=== PATIENT | male | born 1955 | race Caucasian/White ===

== ENCOUNTER 2017-01-01 11:42 | Day surgery (SDC) | payer BC ==
[~2017-01-01 11:42] MED LIST: RINGERS SOLUTION,LACTATED 1,000 ML IV PRN
[2017-01-01] MEDS ORDERED: BUPIVACAINE HCL/EPINEPHRINE 50 ML VIAL IJ ONE ×2 (13:50)
[2017-01-01] MEDS ORDERED: oxyCODONE HCL/ACETAMINOPHEN 1 TAB TABLET PO PRN (14:56)
[2017-01-01 15:37] VITALS: BP 122/62
--- NOTE | 2017-01-02 19:01 | OR ---
Operative Report - Dictated Report Narrative: OPERATIVE REPORT DATE OF OPERATION: 01/01/2017 PREOPERATIVE DIAGNOSIS: No prior dedicated colon studies. Pilar Cyst POSTOPERATIVE DIAGNOSIS: Sigmoid diverticulosis. Pilar Cyst of posterior scalp (pathology pending) OPERATION: Colonoscopy and excision of pilar cyst of the scalp SURGEON: Rosalba Phelps MD ANESTHESIA: MAC/local Tadeo Martínez CRNA INDICATIONS FOR PROCEDURE: The patient is a 61-year-old male referred for initial colon screening by Dr. Lantigua. The patient's mother had colon cancer at age 84. The patient has had no previous dedicated colon studies. He is currently asymptomatic. He has no enlarging pilar cyst on the posterior scalp which is frequently traumatized. FINDINGS: Sigmoid diverticulosis otherwise normal colonoscopy to the cecum. Large pilar cyst of the posterior scalp (pathology pending) NARRATIVE OF PROCEDURE: The patient was identified in the holding area, the cyst scalp was identified, and prior to the administration of anesthetic, a multidisciplinary timeout was observed. EXCISION OF SCALP CYST: With the patient in the right lateral position and after the administration of intravenous sedation the area around the pilar cyst was clipped of hair, prepped with Betadine solution, and isolated with sterile drapes. The remainder the patient was cover with sterile disposable drapes. The area around the cyst was infiltrated with 0.5% Marcaine with epinephrine. An incision was made in the skin over the cyst which could then be dissected free from the surrounding scalp using Metzenbaum scissors. The cyst was removed intact and submitted to pathology. The wound was inspected for hemostasis which appeared complete. All counts were correct. The wound was approximated with beena. The area was washed and dried. No dressing was applied. COLONOSCOPY: The patient was placed in the left lateral position and the perineum was inspected. There was no evidence of pilonidal disease or skin breakdown. The external appearance of the anus was normal. Sphincter tone was good. The flexible fiberoptic colonoscope was inserted into the rectum which was insufflated with air. The rectal mucosa and submucosal vascular pattern appeared normal, the prep was seen to be complete. The scope was advanced through the sigmoid colon, which contained numerous large not impacted noninflamed diverticular openings. The scope was advanced up the descending colon, and around the splenic flexure where the triangular haustral architecture of the transverse colon was seen. The scope was advanced across the transverse colon, around the hepatic flexure to the cecum, where the confluence of tenia and the ileocecal valve were identified. The mucosa at this level appeared normal. The scope was then slowly withdrawn in a circular fashion so that all aspects of colonic mucosa were inspected. The colon was normal in course and caliber. The haustral architecture appeared well preserved throughout with no evidence of external compression. The mucosa and submucosal vascular pattern appeared normal, specifically there was no gross evidence to suggest colitis or inflammatory bowel disease and no AV malformations were seen. The diverticulosis was moderate in degree and confined primarily to the sigmoid colon. No polyps were encountered. The scope was gradually withdrawn to the level of the rectum. As much insufflated air as possible was removed. The scope was withdrawn from the patient and the procedure terminated. The patient tolerated the anesthetic and procedure well without complication and was transferred back to the ambulatory surgery area awake and in stable condition. The patient remained stable throughout a period of postoperative observation. He denied abdominal discomfort or pain in the scalp, was able to tolerate by mouth intake, and was up without assistance. I shared the operative findings with the patient and he was given copies of the photographs which appear in the medical record. He was discharged home with instructions not to engage in hazardous activity today, but may resume normal activity tomorrow, and advance diet as tolerated. He is to keep the scalp incision dry for at least 48 hours. He is to continue those medications as listed in the history and physical exam. He has phone numbers to call for problems with the scalp incision. A return office appointment was made for 01/09/2017. RECOMMENDATION: Colon surveillance in 10 years depending upon findings or symptoms A trial of Benefiber or equivalent was suggested in addition to a high fiber to aid with diverticulosis. Reviewed and electronically signed
== END 2017-01-01 11:43 | disposition home or self-care (01) ==
LOC: AMB 11:42
PROVIDERS: ATTEND Surgery
PROC: 0DJD8ZZ Inspection of Lower Intestinal Tract, Via Natural or Artificial Opening Endoscopic (ICD-10-PCS; principal; 2017-01-01 13:45)
PROC: 0HB0XZZ Excision of Scalp Skin, External Approach (ICD-10-PCS; 2017-01-01 13:45)
DX: Z12.11 Encounter for screening for malignant neoplasm of colon (principal); L72.11 Pilar cyst; K57.30 Diverticulosis of large intestine without perforation or abscess without bleeding; Z87.891 Personal history of nicotine dependence; Z80.0 Family history of malignant neoplasm of digestive organs; Z68.28 Body mass index [BMI] 28.0-28.9, adult
CPT/HCPCS: 11426; G0105

== ENCOUNTER 2018-07-24 16:08 | Observation (INO) ==
[2018-07-24 16:37] LABS: Hematocrit 43.8 % (42.0-52.0); Hemoglobin 15.2 gm/dL (13.5-18.0); Mean Cell Volume 88.5 fl (78-100); Mean Corpuscular Hemoglobin 30.7 pg (27-31); Mean Corpuscular Hgb Conc 34.7 g/dl (32-36); Mean Platelet Volume 9.2 fl (8-11.3); Neutrophil # 5.4 K/mm3 (1.3-6.0); Neutrophil % 69.5 % (42-75.0); Platelet Count 215 K/mm3 (150-450); Red Blood Count 4.95 M/mm3 (4.7-6.0); Red Cell Distribution Width 13.1 % (11.5-14.0); White Blood Count 7.8 K/mm3 (4.0-10.5)
[2018-07-24 16:54] LABS: Albumin * 4.5 gm/dl (3.4-5.0); Anion Gap 11.7 mmol/L (6.8-13.8); BUN/Creatinine Ratio 14.3 (9.0-21.6); Bilirubin, Total 0.5 mg/dL (0.0-1.1); Ca. Corrected For Albumin 8.5 mg/dL (8.4-10.2); Calcium * 9.2 mg/dL (7.9-10.9); Potassium 3.7 mmol/L (3.4-4.6); Total Protein 7.8 gm/dL (6.2-8.2); Troponin I 0.025 ng/mL (0.00-0.10)
--- NOTE | 2018-07-24 17:29 | ERNOTE ---
Chest Pain/Cardiac HPI Date of Service: 07/24/18 Chief Complaint: Chest Pain Time Seen by Provider: 07/24/18 16:24 Source: patient, family Exam Limitations: no limitations Immunizations: IMMUNIZATION HX Immunizations Up to Date Yes History of Influenza Vaccine No Hx Pneumococcal Vaccination No Allergies/Adverse Reactions: Allergies No Known Allergies Allergy (Verified 07/24/18 16:13) Home Medications: HOME MEDICATIONS NK [No Home Medication] 12/22/16 [Last Taken Unknown] Narrative: patient present to ed with report of chest pain this am with radiation to left arm suymptoms resolved aand returned briefly this afternoon , reports pain was mild rating it at 1-2 now reslved Timing: resolved prior to arrival Severity/Quality: moderate, pressure Location: substernal, left chest Chest Pain Radiation: arms Activities at Onset: activity Modifying Factors - Improves: Present: movement Modifying Factors - Worsens: Present: nothing Aspirin Treatment Today: 325 mg x 1 Associated Symptoms: Present: denies symptoms Prior Chest Pain/Cardiac Workup: Reports: no prior cardiac workup Review of Systems - Narrative Narrative: unremarkable - Review of Systems Constitutional: Present: See HPI EYE: Present: no symptoms reported ENT: Present: no symptoms reported Respiratory: Present: no symptoms reported Cardiology: Present: See HPI, chest pain Gastrointestinal/Abdominal: Present: no symptoms reported Genitourinary: Present: no symptoms reported Musculoskeletal: Present: no symptoms reported Skin: Present: no symptoms reported Neurological: Present: no symptoms reported Endocrine: Present: no symptoms reported Hematologic/Lymphatic: Present: no symptoms reported Psych: Present: no symptoms reported All Other Systems: All systems neg except as marked Medical History (Last Reviewed 07/24/18 @ 16:14 by Wanda De Guzman RN) Allergic rhinitis Onset Date: ~04/18/13 Dupuytren's contracture Onset Date: ~04/18/13 Mitral valve prolapse Onset Date: ~12/21/16 Murmur, cardiac Onset Date: Unknown Papilloma of oropharynx Onset Date: Unknown Sebaceous cyst Onset Date: ~04/18/13 Surgical History: Surgical History (Last Reviewed 07/24/18 @ 16:14 by Wanda De Guzman RN) H/O colonoscopy Onset Date: ~01/01/17 H/O removal of cyst Onset Date: ~01/01/17 H/O toe surgery Onset Date: Unknown History of ankle surgery Onset Date: Unknown [place] teeth extracted Onset Date: Unknown Family History: Family History (Last Reviewed 07/24/18 @ 16:14 by Wanda De Guzman RN) Brother Alive and well Brother Back problem Sister Alive and well Father AAA (abdominal aortic aneurysm) Mother Cancer Sister Cancer Social History: Preferred Language Vincentian Do you have any restorationist or No cultural preference? Smoking Status Former smoker Abuse History No History of abuse Psych History No pertinent hx Alcohol Use rarely Drug Use none Physical Exam - Physical Exam General Appearance: Present: no apparent distress Head Exam: Present: normal inspection, no evidence of injury Eye Exam: Normal inspection: bilateral, PERRL: bilateral, EOMI: bilateral Ears, Nose, Throat: Present: normal ENT inspection, normal pharynx Neck: Present: normal inspection, nontender Respiratory: Present: no respiratory distress, normal breath sounds, no accessory muscle use, chest nontender, lungs clear Cardiovascular/Chest: Present: regular rate, rhythm, no murmur, normal peripheral pulses Gastrointestinal/Abdominal: Present: normal bowel sounds, nontender, nondistended, soft, no organomegaly Back Exam: Present: normal inspection, normal range of motion, no CVA tenderness , no vertebral tenderness Extremity Exam: Present: normal inspection, non-tender, normal range of motion, no edema Neurological Exam: Present: alert, oriented, normal mood/affect, no motor/ sensory deficits Skin Exam: Present: normal color, warm/dry Lymphatic Exam: Present: no adenopathy ED Progress - Date and Time Seen: Date and Time: 07/24/18 19:54 patient improved no chest pain at present reviewed labs and xrays with patient , recomend observation to r/o cardiac ischemia, case discussed with dr silva who accepts patient for observation - Results and Orders Patient's Lab Results:: I have reviewed the patient's lab results. - Vital Signs Patient's Vital Signs:: I have reviewed the patient's vital signs. Vital Signs: Vital Signs 07/24/18 16:10 07/24/18 16:36 07/24/18 16:58 Temperature 36.7 C Pulse Rate 82 63 63 Respiratory Rate 15 9 L 16 Blood Pressure 148/108 H 182/127 H 159/59 H O2 Sat by Pulse Oximetry 99 97 98 - EKG EKG: NSR - X-Ray X-Ray #1 X-Ray: chest Interpretation: Interp. by me - no acute process - Progress/Reassessment Chief Complaint: Chest Pain Progress:: Improved - Transfer of Care Expected Disposition: Admit Plan - Plan Plan: to admit to observation Departure Clinical Impression: Chest pain in adult - Departure Disposition: Still a patient Condition: Fair Referrals: Aakash Lantigua MD [Primary Care Provider] -
[2018-07-24] MEDS ORDERED: NORMAL SALINE 1,000 ML IV PRN (20:14)
[2018-07-24] MEDS ORDERED: NITROGLYCERIN 0.4 MG/TAB BTL SL PRN (21:11)
--- NOTE | 2018-07-24 21:41 | HP ---
Chief Complaint - Chief Complaint Date of Service: 07/24/18 Time of Service: 21:30 Chief Complaint: acute coronary syndrome History of Present Illness: Juventino Galicia is a 63-year-old male presented to ER after having 2 episodes of left arm discomfort followed by some chest tightness and pressure. He's never had any of this before. He remains active and in good health. The second episode happened while at rest but then he got up and moved around and went up and down his back a few times and and then it seemed to resolve. His risk factors for coronary artery disease or nail in that he does not use tobacco , has no history of hypertension, no history of hyperlipidemia, no history of diabetes, and no primary family member history with coronary disease. 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 That he is in good health otherwise. He denies any shortness of breath, diaphoresis, radiation of the discomfort except the discomfort he had the left arm. Denies nausea, vomiting, lightheadedness, and his energy level has been normal recently. He is admitted for ACS, rule out CT. Initial EKGs are normal and cardiac enzymes and troponin are normal. He will have serial enzymes and EKGs. I'll talk with Dr. Lantigua here in the morning about doing a stress test. Medical History (Last Reviewed 07/24/18 @ 21:06 by Ashly Rodriguez) Allergic rhinitis Onset Date: ~04/18/13 Dupuytren's contracture Onset Date: ~04/18/13 Mitral valve prolapse Onset Date: ~12/21/16 Murmur, cardiac Onset Date: Unknown Papilloma of oropharynx Onset Date: Unknown Sebaceous cyst Onset Date: ~04/18/13 Surgical History: Surgical History (Last Reviewed 07/24/18 @ 21:07 by Ashly Rodriguez) H/O colonoscopy Onset Date: ~01/01/17 H/O removal of cyst Onset Date: ~01/01/17 H/O toe surgery Onset Date: Unknown History of ankle surgery Onset Date: Unknown [place] teeth extracted Onset Date: Unknown Family History: Family History (Last Reviewed 07/24/18 @ 21:07 by Ashly Rodriguez) Brother Alive and well Brother Back problem Sister Alive and well Father AAA (abdominal aortic aneurysm) Mother Cancer Sister Cancer Social History: Patient Lives/Resources With Spouse 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 Smoking Status Former smoker Have you smoked in the past 12 No months Do you dip or chew tobacco No Abuse History No History of abuse Psych History No pertinent hx Alcohol Use rarely Drug Use none Review Of Systems (GEN) - Review of Systems EENTM: Present: No Symptoms Reported Respiratory: Present: No Symptoms Reported Cardiac: Present: Chest Pain Abdominal: Present: No Symptoms Reported Genitourinary: Present: No Symptoms Reported Musculoskeletal: Present: No Symptoms Reported Neurological: Present: No Symptoms Reported Skin: Present: No Symptoms Reported Endocrine: Present: No Symptoms Reported Misc: All systems neg except as marked Immunizations: IMMUNIZATION HX Immunizations Up to Date Yes History of Influenza Vaccine No Hx Pneumococcal Vaccination No Allergies/Adverse Reactions: Allergies Allergy/AdvReac Type Severity Reaction Status Date / Time No Known Allergies Allergy Verified 07/24/18 21:08 Home Medications: HOME MEDICATIONS NK [No Home Medication] 12/22/16 [Last Taken Unknown] Exam - Exam Vital Signs: Vital Signs - Last Taken Temp 36.7 C 07/24/18 16:10 Pulse 80 07/24/18 20:20 Resp 11 L 07/24/18 20:20 BP 159/59 H 07/24/18 16:58 Pulse Ox 99 07/24/18 20:20 Constitutional: Present: Alert, Oriented x3, Cooperative, Well developed, Well nourished, No distress ENT Exam: Present: normal ENT inspection, hearing grossly normal, pharynx normal , TMs normal Eye Exam: bilateral eye: normal inspection, PERRL, EOMI Neck: Present: non-tender, full range of motion, supple, normal inspection, trachea midline Back Exam: Present: normal inspection, no CVA tenderness, no vertebral tenderness Breasts: Present: Exam deferred Respiratory: Present: chest non-tender, lungs clear, normal breath sounds, no respiratory distress, no accessory muscle use Cardiovascular/Chest: Present: normal peripheral pulses, regular rate, rhythm, no chest tenderness, no edema, no gallop, no JVD, no murmur, no rub Peripheral Pulses: carotid (R): 2+, carotid (L): 2+, radial (R): 2+, radial (L) : 2+ Abdomen: Present: Normal bowel sounds, soft, nontender, nondistended, no rebound tenderness, no hepatospenomegaly, no masses /Rectal: Present: Exam deferred Extremity: Present: normal range of motion, non-tender, normal inspection, no pedal edema, no calf tenderness Skin Exam: Present: normal color, warm/dry, no cyanosis Lymphatic: Present: no adenopathy Neurologic: Present: eye technician II-XII nml as tested, normal cerebellar test, no motor/ sensory deficits, alert, normal mood/affect, oriented x 3 Appearance: Present: appropriate appearance, appropriate insight, neat Eye contact: Present: cooperative, good eye contact, normal speech Thoughts: Present: normal thought pattern, no apparent hallucination Diagnostic Studies: Laboratory Results WBC 7.8 K/mm3 (4.0-10.5) 07/24/18 16:20 RBC 4.95 M/mm3 (4.7-6.0) 07/24/18 16:20 Hgb 15.2 gm/dL (13.5-18.0) 07/24/18 16:20 Hct 43.8 % (42.0-52.0) 07/24/18 16:20 MCV 88.5 fl (78-100) 07/24/18 16:20 MCH 30.7 pg (27-31) 07/24/18 16:20 MCHC 34.7 g/dl (32-36) 07/24/18 16:20 RDW 13.1 % (11.5-14.0) 07/24/18 16:20 Plt Count 215 K/mm3 (150-450) 07/24/18 16:20 MPV 9.2 fl (8-11.3) 07/24/18 16:20 Immature Gran % (Auto) 0.30 % (0.001-0.429) 07/24/18 16:20 Immature Gran # (Auto) 0.02 K/mm3 (0.000-0.0310) 07/24/18 16:20 Neutrophils % 69.5 % (42-75.0) 07/24/18 16:20 Lymphocytes % 22.1 % (20-51) 07/24/18 16:20 Monocytes % 7.1 % (0.0-9) 07/24/18 16:20 Eosinophils % 0.6 % (0.0-3.0) 07/24/18 16:20 Basophils % 0.4 % (0.0-1.0) 07/24/18 16:20 Nucleated RBC % 0.0 k/mm3 (0-1) 07/24/18 16:20 Neutrophils # 5.4 K/mm3 (1.3-6.0) 07/24/18 16:20 Lymphocytes # 1.71 k/mm3 (1.5-3.5) 07/24/18 16:20 Monocytes # 0.6 k/mm3 (0.0-1.0) 07/24/18 16:20 Eosinophils # 0.1 k/mm3 (0.0-0.7) 07/24/18 16:20 Absolute Basophils 0.0 k/mm3 (0.0-0.1) 07/24/18 16:20 Sodium 139 mmol/L (132-142) 07/24/18 16:20 Plasma Sodium 139 mmol/L (130-142) 07/24/18 16:20 Potassium 3.7 mmol/L (3.4-4.6) 07/24/18 16:20 Chloride 103 mmol/L (97-106) 07/24/18 16:20 Carbon Dioxide 28.0 mmol/L (24-32.6) 07/24/18 16:20 Anion Gap 11.7 mmol/L (6.8-13.8) 07/24/18 16:20 BUN 13 mg/dL (6-23) 07/24/18 16:20 Creatinine 0.91 mg/dL (0.4-1.4) 07/24/18 16:20 Est GFR (Non-Af Amer) 90 mL/min (60-130) 07/24/18 16:20 BUN/Creatinine Ratio 14.3 (9.0-21.6) 07/24/18 16:20 Random Glucose 98 mg/dL (70-110) 07/24/18 16:20 Calcium 9.2 mg/dL (7.9-10.9) 07/24/18 16:20 Calcium Adj for Albumin 8.5 mg/dL (8.4-10.2) 07/24/18 16:20 Total Bilirubin 0.5 mg/dL (0.0-1.1) 07/24/18 16:20 AST 22 U/L (0-48) 07/24/18 16:20 ALT 30 U/L (19-67) 07/24/18 16:20 Alkaline Phosphatase 60 U/L (50-170) 07/24/18 16:20 Troponin I 0.058 ng/mL (0.00-0.10) 07/24/18 19:00 Total Protein 7.8 gm/dL (6.2-8.2) 07/24/18 16:20 Albumin 4.5 gm/dl (3.4-5.0) 07/24/18 16:20 Assessment/Plan - Narrative Narrative: He will have serial EKGs and troponin through the night. He may have a heart healthy diet to be up ad darian. He takes no medications to continue. He has taken aspirin first at home within an ER this evening. I'll turn his care doctor and appeared tomorrow if he is here. - Assessment/Plan (1) Acute coronary syndrome Problem: Acute (2) Chest pain in adult Problem: Acute
[2018-07-24] MEDS: METOPROLOL TARTRATE 25 MG TABLET PO SCH (21:52)
[2018-07-25] MEDS ORDERED: ACETAMINOPHEN 325 MG TABLET PO PRN (05:03)
[2018-07-25] MEDS ORDERED: NITROGLYCERIN 1 INCH PACKET TD SCH (07:00)
--- NOTE | 2018-07-25 07:04 | PN ---
Progess Note - Interim Date: 07/25/18 Time: 07:01 Narrative: 07/25/18 07:01 Pt. stating did have some mild chest pressure throughout the night, but not like the pain he had yesterday. No more left arm discomfort. No N/V. Trop I have trended up overnight without any EKG changes. No meds other than metoprolol given last pm. 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 A/P: ACS: will contact [facility] cardiology about possible transfer for cath and possible stent placement. Will keep pt. NPO for now. Will do nitropaste to chest given sx and elevated BP.
--- NOTE | 2018-07-25 07:36 | DS ---
Transfer Discharge Summary - Diagnosis(s)/Problems (1) Acute coronary syndrome Narrative: see narrative below. Problem: Acute (2) Chest pain in adult Problem: Acute - Course Description of Stay: Pt. admitted last pm for CP r/o AMI. He had continued chest pressure that was less than the CP yesterday AM, no no assoc. sx and no EKG's overnight. 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 This am due to BP's in the 140's/90's and continue chest discomfort I did place 1inch nitrobid on his chest wall as his Trop I went from Laboratory Tests 07/24/18 07/25/18 16:20 03:13 Troponin I 0.025 0.129 H* [facility] was contacted and I spoke with Dr. Ramirez who will take patient in transfer and take Juventino to the cath lab tech as he may need revascularization/ stenting given his sx and findings. Appreciate Dr. Ramirez's help and support. Pt. was otherwise stable at time of transfer, without any findings on PE that are concerning. Pt. is alert, talking, comfortable, though slightly anxious appearing. Lungs are clear, heart is RRR without murmur. Procedures Performed: none - Results and Findings Results and Findings: Laboratory Results - last 24 hr 07/24/18 07/24/18 07/24/18 16:20 16:20 19:00 WBC 7.8 RBC 4.95 Hgb 15.2 Hct 43.8 MCV 88.5 MCH 30.7 MCHC 34.7 RDW 13.1 Plt Count 215 MPV 9.2 Immature Gran % (Auto) 0.30 Immature Gran # (Auto) 0.02 Neutrophils % 69.5 Lymphocytes % 22.1 Monocytes % 7.1 Eosinophils % 0.6 Basophils % 0.4 Nucleated RBC % 0.0 Neutrophils # 5.4 Lymphocytes # 1.71 Monocytes # 0.6 Eosinophils # 0.1 Absolute Basophils 0.0 Sodium 139 Plasma Sodium 139 Potassium 3.7 Chloride 103 Carbon Dioxide 28.0 Anion Gap 11.7 BUN 13 Creatinine 0.91 Est GFR (Non-Af Amer) 90 BUN/Creatinine Ratio 14.3 Random Glucose 98 Calcium 9.2 Calcium Adj for Albumin 8.5 Total Bilirubin 0.5 AST 22 ALT 30 Alkaline Phosphatase 60 Troponin I 0.025 0.058 Total Protein 7.8 Albumin 4.5 07/24/18 07/25/18 23:55 03:13 WBC RBC Hgb Hct MCV MCH MCHC RDW Plt Count MPV Immature Gran % (Auto) Immature Gran # (Auto) Neutrophils % Lymphocytes % Monocytes % Eosinophils % Basophils % Nucleated RBC % Neutrophils # Lymphocytes # Monocytes # Eosinophils # Absolute Basophils Sodium Plasma Sodium Potassium Chloride Carbon Dioxide Anion Gap BUN Creatinine Est GFR (Non-Af Amer) BUN/Creatinine Ratio Random Glucose Calcium Calcium Adj for Albumin Total Bilirubin AST ALT Alkaline Phosphatase Troponin I 0.096 0.129 H* Total Protein Albumin - Medications Medications: Active Medications Acetaminophen (Tylenol) 650 mg PO Q6H PRN PRN Reason: Mild pain (pain scale 1-3) Stop: 08/24/18 05:04 Last Admin: 07/25/18 05:27 Dose: 650 mg Sodium Chloride (Sodium Chloride 0.9%) 1,000 mls @ 125 mls/hr IV .Q8H PRN PRN Reason: HYDRATION Stop: 08/23/18 20:15 Last Admin: 07/25/18 03:35 Dose: 125 mls/hr Metoprolol Tartrate (Lopressor) 25 mg PO BID [facility] Stop: 08/23/18 21:46 Last Admin: 07/24/18 21:52 Dose: 25 mg Nitroglycerin (Nitro-Bid 2% Ointment) 1 inch TD Q8H [facility] Stop: 08/24/18 07:01 Last Admin: 07/25/18 07:24 Dose: 1 inch - Disposition Disposition: Short Term Hospital Inpatient Condition: Stable Discharge Date: 07/25/18 Discharge Time: 07:35
[2018-07-25] MEDS: METOPROLOL TARTRATE 25 MG TABLET PO SCH (07:52)
[2018-07-25 10:55] VITALS: BP 155/86
== END 2018-07-25 08:40 | disposition short-term general hospital (02) ==
LOC: ER 16:08 → MS 16:08
PROVIDERS: ADMIT Family Medicine; ATTEND Family Medicine
CPT/HCPCS: 36415; 71020; 71046; 80053; 84484; 85025; 93005; 99284; G0378